=== PATIENT | male | born 1955 | race African-American/Black ===

== ENCOUNTER → 2018-03-05 | Outpatient (CLI) | payer OTHER ==
[2018-03-05 14:52] LABS: ABSOLUTE BASOPHILS # (AUTO) 0.1 10^3/uL (0.0-0.2); ABSOLUTE EOSINOPHILS # (AUTO) 0.1 10^3/uL (0.0-0.6); HEMOGLOBIN 13.3 g/dL (13.5-17.0); MEAN CORPUSCULAR VOLUME 96 fl (80-97)
[2018-03-05 14:58] LABS: APPEARANCE,URINE CLEAR; BILIRUBIN,URINE NEGATIVE (NEGATIVE); COLOR,URINE YELLOW; GLUCOSE, URINE NEGATIVE (NEGATIVE); KETONES,URINE NEGATIVE (NEGATIVE); LEUKOCYTE ESTERASE,URINE NEGATIVE (NEGATIVE); NITRITE,URINE NEGATIVE (NEGATIVE); PROTEIN,URINE NEGATIVE (NEGATIVE); URINE SPECIFIC GRAVITY 1.017; UROBILINOGEN,URINE NEGATIVE mg/dL (<2.0)
[2018-03-05 15:00] LABS: ABSOLUTE LYMPHOCYTES (AUTO) 2.3 10^3/uL (0.5-4.7); ABSOLUTE MONOCYTES (AUTO) 0.7 10^3/uL (0.1-1.4); ABSOLUTE NEUT (AUTO) 4.3 10^3/uL (1.7-8.2); BASOPHILS % (AUTO) 1.3 % (0-2); EOSINOPHILS % (AUTO) 1.4 % (0-6); HEMATOCRIT 39.9 % (37.9-51.0); LYMPHOCYTES % (AUTO) 30.8 % (13-45); MEAN CORPUSCULAR HGB CONC 33.3 g/dL (32.0-36.0); PLATELET COUNT 283 10^3/uL (150-450); RED BLOOD COUNT 4.15 10^6/uL (4.35-5.55); RED CELL DISTRIBUTION WIDTH 13.9 % (11.5-14.0); SEGMENTED NEUTROPHILS % (AUTO) 57.5 % (42-78); TOTAL CELLS COUNTED % (AUTO) 100 %; WHITE BLOOD COUNT 7.6 10^3/uL (4.0-10.5)
[2018-03-05 15:18] LABS: ANION GAP 10 (5-19); BLOOD UREA NITROGEN 22 mg/dL (7-20); CALCIUM 9.6 mg/dL (8.4-10.2); CARBON DIOXIDE 29 mmol/L (22-30); CHLORIDE 105 mmol/L (98-107); GLUCOSE 100 mg/dL (75-110); POTASSIUM 4.9 mmol/L (3.6-5.0); SODIUM 144.4 mmol/L (137-145)
== END ==
LOC: OD 13:56
PROVIDERS: ATTEND Orthopaedic Surgery
DX: M17.11 Unilateral primary osteoarthritis, right knee (principal)
CPT/HCPCS: 36415; 80048; 81001; 85025

== ENCOUNTER 2018-03-22 07:57 | Inpatient (IN) | payer OTHER ==
--- NOTE | 2018-03-19 10:24 | RADIOLOGY REPORT (SQ) ---
EXAM DESCRIPTION: CHEST PA/LATERAL COMPLETED DATE/TIME: 03/19/2018 10:10 am REASON FOR STUDY: PRE-OP COMPARISON: None. EXAM PARAMETERS: NUMBER OF VIEWS: two views TECHNIQUE: Digital Frontal and Lateral radiographic views of the chest acquired. RADIATION DOSE: NA LIMITATIONS: none FINDINGS: LUNGS AND PLEURA: No opacities, masses or pneumothorax. No pleural effusion. MEDIASTINUM AND HILAR STRUCTURES: No masses or contour abnormalities. HEART AND VASCULAR STRUCTURES: Heart normal size. No evidence for failure. BONES: No acute findings. HARDWARE:Hardware anterior fusion lower cervical spine and posterior fusion at the thoracolumbar junc tion. OTHER: No other significant finding. IMPRESSION: NO SIGNIFICANT RADIOGRAPHIC FINDING IN THE CHEST. TECHNICAL DOCUMENTATION: JOB ID: [id number] [employer]- All Rights Reserved Reading location - IP/workstation name: [email or web address]
--- NOTE | 2018-03-19 20:20 | EKG REPORT ---
SEVERITY:- NORMAL ECG - SINUS RHYTHM : Confirmed by: Ambreen Leigh MD 19-Mar-2018 20:19:51
[~2018-03-22 07:57] MED LIST: BUPIVACAINE INJ/PF LIPOSOME/PF 266 MG/20 ML SDV IJ PRN; CEFAZOLIN INJ 1 GM VIAL IV PRN; IBUPROFEN 800 MG/NS 250 ML IV PRN; LACTATED RINGERS 1000 ML IV PRN; LANSOPRAZOLE 15 MG TAB.RAP.DR PO PRN; LIDOCAINE 0.5% INJ-PF (5 MG/ML) 50 ML SDV SUBCUT PRN; OXYCODONE HCL SR 10 MG TABLET PO PRN; VANCOMYCIN HCL 1,000 MG in DEXTROSE 5%-WATER 250 ML IV PRN
[2018-03-22] MEDS ORDERED: ONDANSETRON 4 MG TAB.RAPDIS ONE (09:43)
[2018-03-22] MEDS ORDERED: MIDAZOLAM 2 MG/2 ML INJ ONE (10:18)
[2018-03-22] MEDS ORDERED: FENTANYL CITRATE INJ/PF 100 MCG/2 ML AMPUL ONE ×2 (10:18→10:43)
[2018-03-22] MEDS ORDERED: TRANEXAMIC ACID INJ/PF 1,000 MG/10 ML SDV IV ONE (10:19)
[2018-03-22] MEDS ORDERED: ACETAMINOPHEN 1,000 MG/100 ML RTUPB IV ONE (10:19)
[2018-03-22] MEDS ORDERED: PROPOFOL INJ 200 MG/20 ML VIAL IV ONE (10:19)
[2018-03-22] MEDS ORDERED: DEXMEDETOMIDINE INJ 80 MCG/20 ML VIAL IV ONE (10:19)
[2018-03-22] MEDS ORDERED: THROMBIN (BOVINE) TOPICAL 20000 UNIT VIAL ONE (10:22)
[2018-03-22] MEDS ORDERED: BUPIVACAINE INJ/PF LIPOSOME/PF 266 MG/20 ML SDV ONE (10:22)
[2018-03-22] MEDS ORDERED: THROMBIN (BOVINE) 5000 UNIT EPITAXIS KIT ONE (10:22)
[2018-03-22] MEDS ORDERED: BUPIVACAINE HCL/DEX-WATER/PF 15 MG/2 ML AMPULE ONE (10:33)
[2018-03-22] MEDS ORDERED: FENTANYL CITRATE INJ/PF 250 MCG/5 ML AMPULE ONE (10:43)
[2018-03-22] MEDS ORDERED: MEPERIDINE HCL/PF INJ 25 MG/1 ML DISP.SYRIN IV PRN (11:07)
[2018-03-22] MEDS ORDERED: FENTANYL CITRATE INJ/PF 100 MCG/2 ML AMPUL IV PRN ×3 (11:07)
[2018-03-22] MEDS ORDERED: DIPHENHYDRAMINE HCL 50 MG/ML VIAL IV PRN (11:07)
[2018-03-22] MEDS ORDERED: PROMETHAZINE HCL INJ 25 MG/1 ML VIAL IV PRN ×2 (11:07)
[2018-03-22] MEDS ORDERED: ONDANSETRON HCL INJ/PF 4 MG/2 ML SDV IV PRN (13:50)
[2018-03-22] MEDS ORDERED: MAG HYDROX/AL HYDROX/SIMETH SUSP 30 ML UDCUP PO PRN (13:50)
[2018-03-22] MEDS ORDERED: ACETAMINOPHEN 325 MG TABLET PO PRN (13:50)
--- NOTE | 2018-03-22 13:50 | Operative Report ---
Operative Report DATE OF SURGERY: 03/22/18 PREOPERATIVE DIAGNOSIS: Right knee osteoarthritis POSTOPERATIVE DIAGNOSIS: Same OPERATION: Right total knee arthroplasty SURGEON: GEMA LOVE ANESTHESIA: GA TISSUE REMOVED OR ALTERED: Bone cuts COMPLICATIONS: None ESTIMATED BLOOD LOSS: 50 mL INTRAOPERATIVE FINDINGS: As above PROCEDURE: Patient received preoperative antibiotics and was taken to the operating room where she received general anesthetic. Patient was placed supine position and a thigh tourniquet was applied to right lower extremity. A bump was applied under buttocks and then the right lower extremity was prepped and draped in a normal sterile surgical fashion. Timeout was done identifying the right knee as the correct site. Esmarch was used to exsanguinate the extremity and the tourniquet was inflated at 300 mmHg. Of note we deflated tourniquet at the end of the procedure at 124 minutes. Midline incision was done over the knee and dissection was taken down to the retinaculum and extensor mechanism and a paramedial arthrotomy was done exposing the knee. Patient had [id number] osteoarthritis as confirmed by x-ray with mild joint effusion. We then proceeded to do a medial release and excision of the medial meniscus and lateral meniscus. We moved remove the fat pad and then we flexed the knee at 90 and then remove the ACL and PCL as well. We subluxed the tibia anteriorly and placed the retractors and proceeded to do our tibial cut first. We drilled intramedullary and placed our intramedullary guide and pin the guide by measuring off the medial side which was the low side. We proceeded to do our tibial cut successfully. I was satisfied with the cut so I then proceeded to turn my attention to the femoral side and drilled intramedullary and then placed my intramedullary guide to do my distal femoral cut. We proceeded to us to pin it in place and then do our use a saw to do my distal femoral cut. Once I was satisfied with my distal femoral cut I removed the guide and then use a spacer to confirm proper balance. Initially I felt that my extension gap was balanced with 9 mm spacer. This was removed and I did proceed to size and do my 4-in-1 cutting block of the femur. I measured and used a size 6 and proceeded to do my 4 and 1 cuts. I then placed the box car washer and then do the resected my box portion with a receptive saw and osteotome. I trialed he 6 femur l with a size 6 tibia and 9 mm spacer. I was satisfied with the flexion extension side proceeded to do my patellar cut using the guide. The patella measured 24 mm and we proceeded to resect 12 mm and left 12 mm behind after my cut was completed. I drilled the holes and placed the trial component patella and placed in range of motion. I was satisfied with her range of motion and stability so I proceeded to remove all the implants and opened final components of the tibial tray, femur and patella button. I still use the trialed spacers at the end for repeat examination. Once I used copious irrigation and pulse lavage to clean out the bone I then proceeded to mix cement and appropriately cement the tibial component first and remove the excess cement. I then cemented the femoral component and remove the excess cement. I placed a trial spacer and cemented my patellar button. We waited until the cement had hardened and then needed to inject Exparel in the posterior capsule and periosteum. I then proceeded to put the final polyethylene spacer that measured 9 mm at this point I proceeded to do my closure where I used #1 Vicryl for the arthrotomy and quadriceps tendon. I used thrombin for the knee and then I proceeded to close my subcutaneous tissue with 0 Vicryl and 2-0 Vicryl for dermis and taylor for skin. 4 x 4 dressing and OpSite dressing was applied the extremity was wrapped with soft roll and Mgadaleno bandage. Tourniquet was let down and drapes were removed. Patient was then transferred to PACU in stable condition.
[2018-03-22] MEDS ORDERED: METHOCARBAMOL 500 MG TABLET PO PRN (13:52)
[2018-03-22] MEDS ORDERED: OXYCODONE HCL IR 5 MG TABLET PO PRN ×2 (13:54→14:20)
[2018-03-22] MEDS ORDERED: MORPHINE SULFATE 10 MG/ML INJ IV PRN (13:55)
[2018-03-22] MEDS ORDERED: (PENDING PHARMACY ID) (Gabapentin [Gabapentin] 800 MG) PO SCH (14:00)
--- NOTE | 2018-03-22 14:42 | RADIOLOGY REPORT (SQ) ---
EXAM DESCRIPTION: KNEE RIGHT 2 VIEWS COMPLETED DATE/TIME: 03/22/2018 2:14 pm REASON FOR STUDY: Post OP -Long Cassette in PACU M17.0 BILATERAL PRIMARY OSTEOARTHRITIS OF KNEE COMPARISON: None. NUMBER OF VIEWS: Two views TECHNIQUE: Digital radiographic images of the right knee post-procedure. LIMITATIONS: None. FINDINGS: BONES: No worrisome or unexpected findings post-procedure. DEVICE: Right total knee replacement with patellar resurfacing SOFT TISSUES: No worrisome findings. Expected postoperative soft tissue changes. IMPRESSION: SATISFACTORY POSTOPERATIVE RIGHT KNEE. TECHNICAL DOCUMENTATION: JOB ID: [id number] [employer]- All Rights Reserved Reading location - IP/workstation name: [email or web address]
[2018-03-22] MEDS ORDERED: DEXAMETHASONE SOD PHOSPHATE INJ 4 MG/1 ML VIAL ONE (14:43)
[2018-03-22] MEDS ORDERED: SUCCINYLCHOLINE CHLORIDE INJ 200 MG/10 ML VIAL ONE (14:43)
[2018-03-22] MEDS ORDERED: ROCURONIUM BROMIDE INJ 50 MG/5 ML VIAL IV ONE (14:43)
[2018-03-22] MEDS: SENNOSIDES/DOCUSATE 8.6-50 MG 1 EACH TABLET PO SCH (17:31)
[2018-03-22] MEDS: CARBOXYMETHYLCELLULOSE SOD 0.5% 0.4 ML DROPERETTE OU SCH (17:32)
[2018-03-22] MEDS ORDERED: (PENDING PHARMACY ID) (Carvedilol [Carvedilol] 12.5 MG) PO SCH (18:00)
[2018-03-22] MEDS ORDERED: SILDENAFIL CITRATE 50 MG PO PRN (20:02)
[2018-03-22] MEDS ORDERED: (PENDING PHARMACY ID) (Naproxen [Naproxen] 500 MG) PO PRN (20:02)
[2018-03-22] MEDS ORDERED: NAPROXEN 250 MG TABLET PO PRN (20:17)
[2018-03-22] MEDS: CARVEDILOL 12.5 MG TABLET PO SCH (21:42)
[2018-03-22] MEDS: GABAPENTIN 400 MG CAPSULE PO SCH (21:43)
[2018-03-22] MEDS: OMEGA-3 ACID ETHYL ESTERS 1 GM CAPSULE PO SCH (21:43)
[2018-03-22] MEDS: OXYCODONE HCL SR 10 MG TABLET PO SCH (21:43)
[2018-03-22] MEDS: DOXAZOSIN MESYLATE 1 MG TABLET PO SCH (21:45)
[2018-03-22] MEDS ORDERED: (PENDING PHARMACY ID) (Prazosin Hcl [Prazosin Hcl] 1 MG) PO SCH (22:00)
[2018-03-23] MEDS ORDERED: VANCOMYCIN HCL 1,000 MG in DEXTROSE 5%-WATER 250 ML IV ONE (01:50)
[2018-03-23 04:50] LABS: HEMATOCRIT 32.7 % (37.9-51.0); HEMOGLOBIN 11.1 g/dL (13.5-17.0); MEAN CORPUSCULAR HEMOGLOBIN 32.6 pg (27.0-33.4); MEAN CORPUSCULAR VOLUME 96 fl (80-97); PLATELET COUNT 247 10^3/uL (150-450); RED BLOOD COUNT 3.41 10^6/uL (4.35-5.55); RED CELL DISTRIBUTION WIDTH 13.7 % (11.5-14.0); WHITE BLOOD COUNT 15.1 10^3/uL (4.0-10.5)
[2018-03-23 05:09] LABS: ANION GAP 14 (5-19); BLOOD UREA NITROGEN 21 mg/dL (7-20); CALCIUM 8.8 mg/dL (8.4-10.2); CARBON DIOXIDE 28 mmol/L (22-30); CHLORIDE 99 mmol/L (98-107); GLUCOSE 142 mg/dL (75-110); POTASSIUM 5.1 mmol/L (3.6-5.0); SODIUM 140.5 mmol/L (137-145)
[2018-03-23] MEDS: GABAPENTIN 400 MG CAPSULE PO SCH ×3 (05:49→22:24)
[2018-03-23] MEDS ORDERED: (PENDING PHARMACY ID) (Lisinopril [Lisinopril] 40 MG) PO SCH (10:00)
[2018-03-23] MEDS ORDERED: (PENDING PHARMACY ID) (Diltiazem Hcl [Diltiazem 24hr Cd] 240 MG) PO SCH (10:00)
[2018-03-23] MEDS ORDERED: (PENDING PHARMACY ID) (Omega-3 Fatty Acids/Fish Oil [Fish Oil 1,000 Mg Capsule] 1 CAP) PO SCH (10:00)
[2018-03-23] MEDS: LISINOPRIL 10 MG TABLET PO SCH (10:47)
[2018-03-23] MEDS: OXYCODONE HCL SR 10 MG TABLET PO SCH ×2 (10:48→22:24)
[2018-03-23] MEDS: OMEGA-3 ACID ETHYL ESTERS 1 GM CAPSULE PO SCH ×2 (10:49→22:31)
[2018-03-23] MEDS: CARVEDILOL 12.5 MG TABLET PO SCH ×2 (10:49→22:24)
[2018-03-23] MEDS: SENNOSIDES/DOCUSATE 8.6-50 MG 1 EACH TABLET PO SCH ×2 (10:49→17:49)
[2018-03-23] MEDS: DILTIAZEM HCL 240 MG CAPSULE.CR PO SCH (10:49)
[2018-03-23] MEDS: PRENATAL VITAMIN W DHA CAPSULE PO SCH (10:49)
[2018-03-23] MEDS: CARBOXYMETHYLCELLULOSE SOD 0.5% 0.4 ML DROPERETTE OU SCH ×2 (10:50→17:49)
--- NOTE | 2018-03-23 12:24 | PDOC PROGRESS REPORT ---
Subjective Progress Note for:: 03/23/18 Subjective:: Patient states pain is adequately controlled. Participate with therapy very well. Is okay being discharged tomorrow. Reason For Visit: RIGHT TOTAL KNEE ARTHROPLASTY Physical Exam Vital Signs: Temp Pulse Resp BP Pulse Ox 36.9 C 72 18 131/73 H 97 03/23/18 07:10 03/23/18 07:10 03/23/18 07:10 03/23/18 07:10 03/23/18 07:10 Intake & Output 03/22/18 03/23/18 03/24/18 06:59 06:59 06:59 Intake Total 1700 Output Total 550 Balance 1150 Weight 137.7 kg General appearance: PRESENT: no acute distress Adult Front & Back Image: 1 - Dressing is dry clean and intact. Passively I can extend into the -10 degrees and flexion to about 90 degrees. Actively he cannot straight leg raise yet. He can flex it to about 60 degrees actively. He has soft calves and is neurovascular intact distally. Results Laboratory Results: 03/23/18 04:28 03/23/18 04:28 03/23/18 03/23/18 04:28 04:28 WBC 15.1 H RBC 3.41 L Hgb 11.1 L Hct 32.7 L MCV 96 MCH 32.6 MCHC 34.0 RDW 13.7 Plt Count 247 Sodium 140.5 Potassium 5.1 H Chloride 99 Carbon Dioxide 28 Anion Gap 14 BUN 21 H Creatinine 1.14 Est GFR ( Amer) > 60 Est GFR (Non-Af Amer) > 60 Glucose 142 H Calcium 8.8 Impressions: Chest X-Ray 03/19/18 09:35 IMPRESSION: NO SIGNIFICANT RADIOGRAPHIC FINDING IN THE CHEST. Knee X-Ray 03/22/18 13:51 IMPRESSION: SATISFACTORY POSTOPERATIVE RIGHT KNEE. Status: Image reviewed by me Assessment & Plan - Diagnosis (1) S/P total knee replacement Qualifiers: Laterality: right Qualified Code(s): Z96.651 - Presence of right artificial knee joint Is this a current diagnosis for this admission?: Yes Plan: Patient is postop day 1 from right total knee arthroplasty. Participate with physical therapy very well. He already has a walker and a commode at home. Plan for discharge tomorrow. Dressing change prior to discharge. Continue pain control. Prescriptions are in the chart for discharge tomorrow.
[2018-03-23] MEDS ORDERED: ONDANSETRON 4 MG TAB.RAPDIS PO PRN (19:59)
[2018-03-23] MEDS: DOXAZOSIN MESYLATE 1 MG TABLET PO SCH (22:24)
[2018-03-24 05:14] LABS: HEMATOCRIT 30.8 % (37.9-51.0); HEMOGLOBIN 10.2 g/dL (13.5-17.0); MEAN CORPUSCULAR HEMOGLOBIN 32.5 pg (27.0-33.4); MEAN CORPUSCULAR HGB CONC 33.2 g/dL (32.0-36.0); MEAN CORPUSCULAR VOLUME 98 fl (80-97); PLATELET COUNT 234 10^3/uL (150-450); RED BLOOD COUNT 3.15 10^6/uL (4.35-5.55); RED CELL DISTRIBUTION WIDTH 13.5 % (11.5-14.0); WHITE BLOOD COUNT 18.4 10^3/uL (4.0-10.5)
[2018-03-24] MEDS: GABAPENTIN 400 MG CAPSULE PO SCH (05:56)
[2018-03-24] MEDS ORDERED: NALOXONE HCL INJ/PF 0.4 MG/1 ML SDV ONE ×3 (10:14→17:51)
--- NOTE | 2018-03-24 10:56 | PDOC PROGRESS REPORT ---
Subjective Progress Note for:: 03/24/18 Subjective:: Patient somnolent on examination today according to nursing staff. Patient was arousable and complained of no pain. Denied chest pain or shortness of breath. Reason For Visit: RIGHT TOTAL KNEE ARTHROPLASTY Physical Exam Vital Signs: Temp Pulse Resp BP Pulse Ox 98.5 F 69 19 113/52 L 92 03/24/18 07:55 03/24/18 07:55 03/24/18 07:55 03/24/18 07:55 03/24/18 07:55 Intake & Output 03/23/18 03/24/18 03/25/18 06:59 06:59 06:59 Intake Total 1700 600 Output Total 550 690 Balance 1150 -90 Weight 137.7 kg 137.9 kg Musculoskeletal exam: PRESENT: other - Right knee: Dressing clean/dry/intact no erythema or drainage. Intact plantar flexion/dorsiflexion. No calf tenderness. Negative Homans. No sensory deficits. Results Laboratory Results: 03/24/18 04:16 03/23/18 04:28 03/24/18 04:16 WBC 18.4 H RBC 3.15 L Hgb 10.2 L Hct 30.8 L MCV 98 H MCH 32.5 MCHC 33.2 RDW 13.5 Plt Count 234 Impressions: Chest X-Ray 03/19/18 09:35 IMPRESSION: NO SIGNIFICANT RADIOGRAPHIC FINDING IN THE CHEST. Knee X-Ray 03/22/18 13:51 IMPRESSION: SATISFACTORY POSTOPERATIVE RIGHT KNEE. Assessment & Plan - Diagnosis (1) S/P total knee replacement Qualifiers: Laterality: right Qualified Code(s): Z96.651 - Presence of right artificial knee joint Is this a current diagnosis for this admission?: Yes Plan: Postop day #2 status post right total knee arthroplasty 1. Pain control 2. Xarelto for DVT prophylaxis 3. Patient was given Narcan at bedside today given his somnolence and continuous need for oxygen. The patient continues to require nasal cannula will consider possible consultation to the hospitalist. Anticipate discharge
[2018-03-24] MEDS: CARVEDILOL 12.5 MG TABLET PO SCH ×2 (12:47→23:43)
[2018-03-24] MEDS: DILTIAZEM HCL 240 MG CAPSULE.CR PO SCH (12:47)
[2018-03-24] MEDS: LISINOPRIL 10 MG TABLET PO SCH (12:47)
[2018-03-24 13:44] LABS: ARTERIAL BLOOD BASE EXCESS 0.4 mmol/L; ARTERIAL BLOOD H2CO3 2.48 mmol/L (1.05-1.35); ARTERIAL BLOOD HCO3 30.2 mmol/L (20-26); ARTERIAL BLOOD O2 SATURATION 91.2 % (94-98); ARTERIAL BLOOD TOTAL CO2 32.8 mmol/L (23-27)
[2018-03-24 13:48] LABS: ARTERIAL BLOOD FIO2 24M NC
[2018-03-24 13:50] LABS: ARTERIAL BLOOD PCO2 82.5 mmHg (35-45); ARTERIAL BLOOD PH 7.18 (7.35-7.45)
--- NOTE | 2018-03-24 13:56 | PDOC CONSULTATION ---
Consultation Consult Date: 03/24/18 Attending physician:: HONORIO LAWSON Consult reason:: Sedation History of Present Illness Admission Date/PCP: 03/22/18 07:57 MELANIE FAYE PA-C Patient complains of: Sedation, AMS History of Present Illness: JAMEEL PICKENS is a 62 year old male Past Medical History Cardiac Medical History: Reports: Hypertension Denies: Atrial Fibrillation, Congestive Heart Failure, Coronary Artery Disease, Myocardial Infarction, Hyperlipidema, Peripheral Vascular Disease, Pulmonary Embolism, Heart Murmur Pulmonary Medical History: Reports: Sleep Apnea - uses CPAP Denies: Asthma, Bronchitis, Chronic Obstructive Pulmonary Disease (COPD), Pneumonia, Respiratory Failure, Tuberculosis Neurological Medical History: Denies: Seizures Endocrine Medical History: Denies: Hyperthyroidism, Hypothyroidism Renal/ Medical History: Denies: End Stage Renal Disease Malignancy Medical History: Denies: Lung Cancer Musculoskeltal Medical History: Reports: Arthritis - knees Denies: Fibromyalgia Psychiatric Medical History: Reports: Post Traumatic Stress Disorder - under treatment Denies: Bipolar Disorder, Depression Hematology: Denies: Anemia, Sickle Cell Disease Past Surgical History Past Surgical History: Denies: Appendectomy, Cholecystectomy, Coronary Artery Bypass Graft, Gastric Bypass Surgery, Herniorrhaphy, Pacemaker, Tonsillectomy Social History Information Source: Patient Smoking Status: Never Smoker Hx Recreational Drug Use: No Hx Prescription Drug Abuse: No - Advance Directive Resuscitation Status: Full Code Family History Parental Family History Reviewed: No Children Family History Reviewed: NA Sibling(s) Family History Reviewed.: NA Medication/Allergy Home Medications: Carboxymethylcellulose Sodium [Lubricant Eye Drops] 1 each OD BID 03/19/18 Carvedilol 12.5 mg PO BID 03/19/18 Diltiazem HCl [Diltiazem 24Hr Cd] 240 mg PO DAILY 03/19/18 Gabapentin 800 mg PO TID 03/19/18 Lisinopril 40 mg PO DAILY 03/19/18 Methocarbamol 500 mg PO TID PRN 03/19/18 Naproxen 500 mg PO BID PRN 03/19/18 [place]-3 Fatty Acids/Fish Oil [Fish Oil 1,000 mg Capsule] 1 cap PO BID 03/19/18 Prazosin HCl 1 mg PO HSP PRN 03/19/18 Sildenafil Citrate 50 mg PO ASDIR PRN MDD 1 TAB IN 24 HOURS 07/09/18 Multivit-Min/Folic/Vit K/Lycop [One-A-Day Men's 50 Plus Tablet] 1 each PO DAILY 03/22/18 Allergies/Adverse Reactions: No Known Allergies Allergy (Verified 03/22/18 20:25) Review of Systems ROS unobtainable: Due to mental status Physical Exam Vital Signs: Temp Pulse Resp BP Pulse Ox 98.5 F 69 19 113/52 L 92 03/24/18 07:55 03/24/18 07:55 03/24/18 07:55 03/24/18 07:55 03/24/18 07:55 Intake & Output 03/23/18 03/24/18 03/25/18 06:59 06:59 06:59 Intake Total 1700 600 Output Total 550 690 Balance 1150 -90 Weight 137.7 kg 137.9 kg General appearance: PRESENT: no acute distress, morbidly obese, other - Sleepy, intermittantly arousable After receiving Narcan, wake. Conversant. Head exam: PRESENT: atraumatic, normocephalic Mouth exam: PRESENT: dry mucosa Respiratory exam: PRESENT: decreased breath sounds, symmetrical, unlabored, other - Deep breathing Cardiovascular exam: PRESENT: RRR. ABSENT: tachycardia GI/Abdominal exam: PRESENT: soft. ABSENT: tenderness Neurological exam: PRESENT: alert, awake - after receiving narcan, CN II-XII grossly intact. ABSENT: aphasic Psychiatric exam: PRESENT: appropriate affect Skin exam: PRESENT: dry, intact Results Laboratory Results: 03/24/18 04:16 03/23/18 04:28 03/24/18 04:16 WBC 18.4 H RBC 3.15 L Hgb 10.2 L Hct 30.8 L MCV 98 H MCH 32.5 MCHC 33.2 RDW 13.5 Plt Count 234 Impressions: Chest X-Ray 03/19/18 09:35 IMPRESSION: NO SIGNIFICANT RADIOGRAPHIC FINDING IN THE CHEST. Knee X-Ray 03/22/18 13:51 IMPRESSION: SATISFACTORY POSTOPERATIVE RIGHT KNEE. Assessment & Plan - Diagnosis (1) Altered mental state Qualifiers: Altered mental status type: somnolence Qualified Code(s): R40.0 - Somnolence Is this a current diagnosis for this admission?: Yes Plan: Most likely secondary to opioid use. Last received Oxycodone 20mg around 11pm on 03/23. Also on Robaxin. Would not expect this degree of sedation however unclear if pt is opioid naive. - Received Narcan 0.4mg * 2 doses. Responses after each dose. More responsive after 2nd dose. This points towards AMS being due to over-medication - Continue to monitor, can given up 10mg Narcan total dose - Neuro exam non-focal, CTM - ABG obtained and results pending - Holding Robaxin and Gapabentin, decreased Oxycodone 10mg - Scheduling Tylenol 650mg q4 hours to achieve better pain contorl (2) Hypotension Qualifiers: Hypotension type: other hypotension type Qualified Code(s): I95.89 - Other hypotension Is this a current diagnosis for this admission?: Yes Plan: On home medications; BP's noted to be soft this AM with SBP in 90s -Will give 1L NS bolus - Monitor BPs, continue home meds for now (3) Leukocytosis Qualifiers: Leukocytosis type: bandemia Qualified Code(s): D72.825 - Bandemia Is this a current diagnosis for this admission?: Yes Plan: Unclear etiology. No reported fevers. No localizing symptoms. CTM. Repeat CBC in AM (4) S/P total knee replacement Qualifiers: Laterality: right Qualified Code(s): Z96.651 - Presence of right artificial knee joint Is this a current diagnosis for this admission?: Yes Plan: POD #2 - Continue Rivaroxaban for DVT ppx - Ortho following - Time Time Spent: 30 to 50 Minutes Anticipated discharge: Home, Home with Homehealth
[2018-03-24] MEDS ORDERED: ACETAMINOPHEN 325 MG TABLET PO SCH (14:00)
[2018-03-24] MEDS: CARBOXYMETHYLCELLULOSE SOD 0.5% 0.4 ML DROPERETTE OU SCH ×2 (14:24→19:40)
[2018-03-24] MEDS: SENNOSIDES/DOCUSATE 8.6-50 MG 1 EACH TABLET PO SCH ×2 (14:24→19:40)
[2018-03-24] MEDS: OMEGA-3 ACID ETHYL ESTERS 1 GM CAPSULE PO SCH ×2 (14:24→23:43)
[2018-03-24] MEDS: PRENATAL VITAMIN W DHA CAPSULE PO SCH (14:24)
[2018-03-24] MEDS ORDERED: SUCCINYLCHOLINE CHLORIDE INJ 200 MG/10 ML VIAL ONE (16:48)
[2018-03-24] MEDS ORDERED: RIVAROXABAN 10 MG TABLET PO SCH (17:00)
[2018-03-24] MEDS ORDERED: NALOXONE HCL INJ/PF 0.4 MG/1 ML SDV IV ONE (18:15)
[2018-03-24 18:54] LABS: ARTERIAL BLOOD BASE EXCESS -0.5 mmol/L; ARTERIAL BLOOD H2CO3 1.95 mmol/L (1.05-1.35); ARTERIAL BLOOD HCO3 27.7 mmol/L (20-26); ARTERIAL BLOOD O2 SATURATION 91.4 % (94-98); ARTERIAL BLOOD PCO2 64.8 mmHg (35-45); ARTERIAL BLOOD PH 7.25 (7.35-7.45); ARTERIAL BLOOD PO2 71.8 mmHg (80-100); ARTERIAL BLOOD TOTAL CO2 29.6 mmol/L (23-27)
[2018-03-24 18:55] LABS: ARTERIAL BLOOD FIO2 30%
[2018-03-24] MEDS: ACETAMINOPHEN 325 MG TABLET PO SCH ×2 (19:40→23:43)
[2018-03-24 21:26] LABS: ANION GAP 12 (5-19); BLOOD UREA NITROGEN 54 mg/dL (7-20); CALCIUM 7.9 mg/dL (8.4-10.2); CARBON DIOXIDE 29 mmol/L (22-30); CHLORIDE 94 mmol/L (98-107); GLUCOSE 121 mg/dL (75-110); POTASSIUM 5.6 mmol/L (3.6-5.0)
[2018-03-24] MEDS ORDERED: LACTULOSE SYRUP 20 GM/30 ML UDCUP PO ONE (21:36)
[2018-03-24 21:40] LABS: ARTERIAL BLOOD FIO2 35%; ARTERIAL BLOOD H2CO3 2.47 mmol/L (1.05-1.35); ARTERIAL BLOOD O2 SATURATION 93.2 % (94-98); ARTERIAL BLOOD PO2 85.8 mmHg (80-100); ARTERIAL BLOOD TOTAL CO2 31.5 mmol/L (23-27)
[2018-03-24 21:41] LABS: ARTERIAL BLOOD PCO2 82.2 mmHg (35-45); ARTERIAL BLOOD PH 7.17 (7.35-7.45)
[2018-03-24] MEDS ORDERED: NALOXONE HCL INJ 2 MG/2 ML DISP.SYRIN IV ONE (21:47)
[2018-03-24 22:23] LABS: TROPONIN I < 0.012 ng/mL
[2018-03-24] MEDS ORDERED: IPRATROPIUM/ALBUTEROL 0.5-2.5 MG/3 ML AMPUL NEB ONE (22:30)
[2018-03-24] MEDS ORDERED: CALCIUM GLUCONATE 1000 MG/10 ML INJ IV ONE (22:30)
[2018-03-24 22:35] LABS: APPEARANCE,URINE CLOUDY; BILIRUBIN,URINE NEGATIVE (NEGATIVE); COLOR,URINE YELLOW; GLUCOSE, URINE NEGATIVE (NEGATIVE); KETONES,URINE NEGATIVE (NEGATIVE); LEUKOCYTE ESTERASE,URINE NEGATIVE (NEGATIVE); NITRITE,URINE NEGATIVE (NEGATIVE); PROTEIN,URINE 100 mg/dL (NEGATIVE); URINE SPECIFIC GRAVITY 1.014; UROBILINOGEN,URINE NEGATIVE mg/dL (<2.0)
[2018-03-24 22:42] LABS: HEMATOCRIT 27.9 % (37.9-51.0); HEMOGLOBIN 9.3 g/dL (13.5-17.0); MEAN CORPUSCULAR HEMOGLOBIN 32.5 pg (27.0-33.4); MEAN CORPUSCULAR HGB CONC 33.3 g/dL (32.0-36.0); MEAN CORPUSCULAR VOLUME 98 fl (80-97); PLATELET COUNT 201 10^3/uL (150-450); RED BLOOD COUNT 2.86 10^6/uL (4.35-5.55); RED CELL DISTRIBUTION WIDTH 13.3 % (11.5-14.0); WHITE BLOOD COUNT 14.9 10^3/uL (4.0-10.5)
[2018-03-24] MEDS ORDERED: PROPOFOL 1,000 MG/100 ML INFUS..BTL IV ONE (23:05)
[2018-03-24] MEDS ORDERED: PROPOFOL INJ 200 MG/20 ML VIAL IV ONE (23:33)
[2018-03-24] MEDS ORDERED: SODIUM BICARBONATE 8.4% INJ 50 MEQ/50 ML DISP.SYRIN ONE (23:38)
[2018-03-24] MEDS ORDERED: DEXTROSE 5%-WATER 1000 ML 1,000 ML with SODIUM BICARBONATE 150 MEQ IV PRN ×2 (23:39)
[2018-03-24] MEDS: DOXAZOSIN MESYLATE 1 MG TABLET PO SCH (23:43)
[2018-03-24] MEDS: PROPOFOL 1,000 MG/100 ML INFUS..BTL IV PRN (23:54)
--- NOTE | 2018-03-25 00:28 | RADIOLOGY REPORT (SQ) ---
EXAM DESCRIPTION: Single view chest CLINICAL HISTORY: 62 years Male ETT placement COMPLETED DATE/TME: 03/24/2018 23:32 COMPARISON: 03/19/2018. FINDINGS: Poor depth of inspiration with atelectasis in the lung bases. ET tube is above the level of karen. Nasogastric tube passes below the level the hemidiaphragm. Postsurgical changes in the thoracolumbar spine in the cervical spine. The cardiomediastinal silhouette appears more prominent than on the previous examination which I suspect is due to poor depth of inspiration and AP projection. Prominence of the central pulmonary vasculature and patchy perihilar densities which may reflect central pulmonary vascular congestion and/or developing infiltrate or edema. Recommend PA and lateral views of the chest. IMPRESSION: Cardial mediastinal silhouette appears prominent which may be on the basis of patient positioning Patchy perihilar densities and prominence of the central pulmonary vasculature. Recommend PA and lateral views of the chest.
[2018-03-25 01:39] LABS: ARTERIAL BLOOD BASE EXCESS 0.4 mmol/L; ARTERIAL BLOOD H2CO3 1.66 mmol/L (1.05-1.35); ARTERIAL BLOOD HCO3 27.1 mmol/L (20-26); ARTERIAL BLOOD O2 SATURATION 96.4 % (94-98); ARTERIAL BLOOD PCO2 55.2 mmHg (35-45); ARTERIAL BLOOD PH 7.31 (7.35-7.45); ARTERIAL BLOOD TOTAL CO2 28.8 mmol/L (23-27)
[2018-03-25 01:40] LABS: ARTERIAL BLOOD FIO2 50%
[2018-03-25] MEDS ORDERED: ACETAMINOPHEN SOLN 325 MG/10.15 ML UDCUP ONE (02:35)
[2018-03-25] MEDS: ACETAMINOPHEN 325 MG TABLET PO SCH ×3 (02:36→08:10)
[2018-03-25] MEDS: PROPOFOL 1,000 MG/100 ML INFUS..BTL IV PRN ×2 (03:33→14:25)
[2018-03-25 04:21] LABS: HEMATOCRIT 27.9 % (37.9-51.0); HEMOGLOBIN 9.3 g/dL (13.5-17.0); MEAN CORPUSCULAR HGB CONC 33.3 g/dL (32.0-36.0); MEAN CORPUSCULAR VOLUME 96 fl (80-97); PLATELET COUNT 165 10^3/uL (150-450); RED CELL DISTRIBUTION WIDTH 13.4 % (11.5-14.0); WHITE BLOOD COUNT 13.7 10^3/uL (4.0-10.5)
[2018-03-25 04:43] LABS: ANION GAP 12 (5-19); BLOOD UREA NITROGEN 62 mg/dL (7-20); CALCIUM 7.8 mg/dL (8.4-10.2); CARBON DIOXIDE 28 mmol/L (22-30); CHLORIDE 95 mmol/L (98-107); GLUCOSE 142 mg/dL (75-110); POTASSIUM 5.2 mmol/L (3.6-5.0); SODIUM 134.9 mmol/L (137-145)
[2018-03-25 05:16] LABS: TROPONIN I < 0.012 ng/mL
[2018-03-25] MEDS: RINGERS SOLUTION,LACTATED 1,000 ML IV PRN ×2 (05:27→12:10)
[2018-03-25 05:37] LABS: ARTERIAL BLOOD BASE EXCESS 4.1 mmol/L; ARTERIAL BLOOD H2CO3 1.81 mmol/L (1.05-1.35); ARTERIAL BLOOD HCO3 31.1 mmol/L (20-26); ARTERIAL BLOOD O2 SATURATION 93.2 % (94-98); ARTERIAL BLOOD PCO2 60.1 mmHg (35-45); ARTERIAL BLOOD PH 7.33 (7.35-7.45); ARTERIAL BLOOD PO2 72.5 mmHg (80-100)
[2018-03-25 05:39] LABS: ARTERIAL BLOOD FIO2 50%
[2018-03-25] MEDS ORDERED: ACETAMINOPHEN 650 MG SUPP.RECT PR PRN (08:01)
[2018-03-25] MEDS: SENNOSIDES/DOCUSATE 8.6-50 MG 1 EACH TABLET PO SCH (08:11)
[2018-03-25] MEDS ORDERED: NAPROXEN 250 MG TABLET NG PRN (09:00)
[2018-03-25] MEDS ORDERED: MAG HYDROX/AL HYDROX/SIMETH SUSP 30 ML UDCUP NG PRN (09:00)
[2018-03-25] MEDS ORDERED: OXYCODONE HCL IR 5 MG TABLET NG PRN (09:00)
[2018-03-25] MEDS ORDERED: ONDANSETRON 4 MG TAB.RAPDIS NG PRN (09:00)
[2018-03-25] MEDS ORDERED: METHOCARBAMOL 500 MG TABLET NG PRN (09:00)
--- NOTE | 2018-03-25 09:30 | RADIOLOGY REPORT (SQ) ---
EXAM DESCRIPTION: U/S RETROPERITON LTD COMPLETED DATE/TIME: 03/25/2018 9:22 am REASON FOR STUDY: decreased urine output M17.0 BILATERAL PRIMARY OSTEOARTHRITIS OF KNEE COMPARISON: None. TECHNIQUE: Dynamic and static grayscale images acquired of the kidneys and bladder and recorded on P ACS. Additional selected color Doppler and spectral images recorded. LIMITATIONS: None. FINDINGS: RIGHT KIDNEY: Normal size. Normal echogenicity. No solid or suspicious masses. No h ydronephrosis. No calcifications. LEFT KIDNEY: Normal size. Normal echogenicity. No solid or suspicious masses. No hydronephrosi s. No calcifications. BLADDER: Decompressed. [place]. OTHER FINDINGS: No other significant finding. IMPRESSION: NORMAL RENAL AND BLADDER ULTRASOUND. TECHNICAL DOCUMENTATION: JOB ID: [id number] [employer]- All Rights Reserved Reading location - IP/workstation name: [email or web address]
[2018-03-25] MEDS ORDERED: HEPARIN SODIUM,PORCINE/D5W 25,000 UNIT/250 ML RTUINJ IV PRN (09:38)
[2018-03-25 09:46] LABS: CREATINE KINASE MB 77.4 ng/mL (<4.55); TROPONIN I 0.026 ng/mL
[2018-03-25] MEDS: ACETAMINOPHEN SOLN 325 MG/10.15 ML UDCUP NG SCH ×2 (09:52→13:24)
[2018-03-25] MEDS ORDERED: SENNOSIDES/DOCUSATE 8.6-50 MG 1 EACH TABLET NG SCH (10:00)
[2018-03-25] MEDS ORDERED: OMEGA-3 ACID ETHYL ESTERS 1 GM CAPSULE PO SCH (10:00)
[2018-03-25] MEDS ORDERED: NA PHOS,M-B/NA PHOS,DI-BA (ADULT) 133 ML ENEMA PR SCH (10:00)
[2018-03-25] MEDS ORDERED: CARVEDILOL 12.5 MG TABLET NG SCH (10:00)
[2018-03-25 10:02] LABS: ABSOLUTE MONOCYTES (AUTO) 1.4 10^3/uL (0.1-1.4); ABSOLUTE NEUT (AUTO) 11.8 10^3/uL (1.7-8.2); BASOPHILS % (AUTO) 0.1 % (0-2); EOSINOPHILS % (AUTO) 0.1 % (0-6); HEMATOCRIT 25.8 % (37.9-51.0); HEMOGLOBIN 8.7 g/dL (13.5-17.0); MEAN CORPUSCULAR HEMOGLOBIN 32.2 pg (27.0-33.4); MEAN CORPUSCULAR HGB CONC 33.6 g/dL (32.0-36.0); MEAN CORPUSCULAR VOLUME 96 fl (80-97); MONOCYTES % (AUTO) 9.8 % (3-13); PLATELET COUNT 167 10^3/uL (150-450); RED BLOOD COUNT 2.69 10^6/uL (4.35-5.55); RED CELL DISTRIBUTION WIDTH 13.4 % (11.5-14.0); TOTAL CELLS COUNTED % (AUTO) 100 %; VENOUS BLOOD BASE EXCESS 1.3 mmol/L; VENOUS BLOOD HCO3 28.7 mmol/L (20-32); VENOUS BLOOD PCO2 57.7 mmHg (35-63); VENOUS BLOOD PH 7.31 (7.30-7.42); WHITE BLOOD COUNT 14.2 10^3/uL (4.0-10.5)
[2018-03-25 10:11] LABS: INTERNATIONAL RATION (INR) 1.27; PROTHROMBIN TIME 16.5 SEC (11.4-15.4)
[2018-03-25 10:12] LABS: PARTIAL THROMBOPLASTIN TIME 37.1 SEC (23.5-35.8)
[2018-03-25] MEDS ORDERED: HEPARIN SOD (PORCINE) 1,000 UNIT/ML 10 ML VIAL IV ONE (10:15)
[2018-03-25] MEDS ORDERED: PHENYLEPHRINE HCL INJ/PF 10 MG/1 ML SDV ONE (10:58)
[2018-03-25] MEDS ORDERED: DEXTROSE 5%-WATER 250 ML with PHENYLEPHRINE HCL 40 MG IV PRN ×2 (11:15)
[2018-03-25] MEDS: CARBOXYMETHYLCELLULOSE SOD 0.5% 0.4 ML DROPERETTE OU SCH (11:17)
--- NOTE | 2018-03-25 11:25 | PDOC PROGRESS REPORT ---
Subjective Progress Note for:: 03/25/18 Subjective:: Patient is seen bedside in the ICU with family. According to family and nursing he is not complaining of pain. Unfortunately last evening his respiratory status did not improve and ultimately required transfer to the ICU and placed on a ventilator. Reason For Visit: RIGHT TOTAL KNEE ARTHROPLASTY Physical Exam Vital Signs: Temp Pulse Resp BP Pulse Ox 100.9 F H 91 16 117/58 L 98 03/25/18 10:00 03/25/18 10:00 03/25/18 10:00 03/25/18 10:00 03/25/18 10:00 Intake & Output 03/24/18 03/25/18 03/26/18 06:59 06:59 06:59 Intake Total 600 2334 Output Total 690 1145 55 Balance -90 1189 -55 Weight 137.9 kg 139.4 kg Musculoskeletal exam: PRESENT: other - Right knee: Small area of dried blood along the distal aspect of the incision appropriate amount of swelling. No evidence of erythema. Unable to assess neuro status or calf tenderness given patient's mental status Results Laboratory Results: 03/25/18 09:50 03/25/18 04:09 03/24/18 03/24/18 03/24/18 13:22 18:20 20:50 WBC RBC Hgb Hct MCV MCH MCHC RDW Plt Count Seg Neutrophils % Lymphocytes % Monocytes % Eosinophils % Basophils % Absolute Neutrophils Absolute Lymphocytes Absolute Monocytes Absolute Eosinophils Absolute Basophils Carbonic Acid 2.48 H 1.95 H HCO3/H2CO3 Ratio 12:1 14:1 ABG pH 7.18 L* 7.25 L ABG pCO2 82.5 H* 64.8 H ABG pO2 77.0 L 71.8 L ABG HCO3 30.2 H 27.7 H ABG O2 Saturation 91.2 L 91.4 L ABG Base Excess 0.4 -0.5 VBG pH VBG pCO2 VBG HCO3 VBG Base Excess FiO2 24M NC 30% Sodium 135.0 L Potassium 5.6 H Chloride 94 L Carbon Dioxide 29 Anion Gap 12 BUN 54 H Creatinine 3.98 H Est GFR ( Amer) 19 L Est GFR (Non-Af Amer) 15 L Glucose 121 H Lactic Acid Calcium 7.9 L Ammonia Albumin Urine Color Urine Appearance Urine pH Ur Specific [place] Urine Protein Urine Glucose (UA) Urine Ketones Urine Blood Urine Nitrite Ur Leukocyte Esterase Urine WBC (Auto) Urine RBC (Auto) 03/24/18 03/24/18 03/24/18 21:30 22:00 22:30 WBC 14.9 H RBC 2.86 L Hgb 9.3 L Hct 27.9 L MCV 98 H MCH 32.5 MCHC 33.3 RDW 13.3 Plt Count 201 Seg Neutrophils % Lymphocytes % Monocytes % Eosinophils % Basophils % Absolute Neutrophils Absolute Lymphocytes Absolute Monocytes Absolute Eosinophils Absolute Basophils Carbonic Acid 2.47 H HCO3/H2CO3 Ratio 11:1 ABG pH 7.17 L* ABG pCO2 82.2 H* ABG pO2 85.8 ABG HCO3 29.0 H ABG O2 Saturation 93.2 L ABG Base Excess -1.0 VBG pH VBG pCO2 VBG HCO3 VBG Base Excess FiO2 35% Sodium Potassium Chloride Carbon Dioxide Anion Gap BUN Creatinine Est GFR ( Amer) Est GFR (Non-Af Amer) Glucose Lactic Acid Calcium Ammonia Albumin Urine Color YELLOW Urine Appearance CLOUDY Urine pH 5.0 Ur Specific [place] 1.014 Urine Protein 100 H Urine Glucose (UA) NEGATIVE Urine Ketones NEGATIVE Urine Blood LARGE H Urine Nitrite NEGATIVE Ur Leukocyte Esterase NEGATIVE Urine WBC (Auto) 22 Urine RBC (Auto) 8 03/25/18 03/25/18 03/25/18 01:26 04:09 04:09 WBC 13.7 H RBC 2.90 L Hgb 9.3 L Hct 27.9 L MCV 96 MCH 32.0 MCHC 33.3 RDW 13.4 Plt Count 165 Seg Neutrophils % Lymphocytes % Monocytes % Eosinophils % Basophils % Absolute Neutrophils Absolute Lymphocytes Absolute Monocytes Absolute Eosinophils Absolute Basophils Carbonic Acid 1.66 H HCO3/H2CO3 Ratio 16:1 ABG pH 7.31 L ABG pCO2 55.2 H ABG pO2 94.0 ABG HCO3 27.1 H ABG O2 Saturation 96.4 ABG Base Excess 0.4 VBG pH VBG pCO2 VBG HCO3 VBG Base Excess FiO2 50% Sodium 134.9 L Potassium 5.2 H Chloride 95 L Carbon Dioxide 28 Anion Gap 12 BUN 62 H Creatinine 4.38 H Est GFR ( Amer) 17 L Est GFR (Non-Af Amer) 14 L Glucose 142 H Lactic Acid Calcium 7.8 L Ammonia Albumin Urine Color Urine Appearance Urine pH Ur Specific [place] Urine Protein Urine Glucose (UA) Urine Ketones Urine Blood Urine Nitrite Ur Leukocyte Esterase Urine WBC (Auto) Urine RBC (Auto) 03/25/18 03/25/18 03/25/18 04:09 05:10 09:50 WBC 14.2 H RBC 2.69 L Hgb 8.7 L Hct 25.8 L MCV 96 MCH 32.2 MCHC 33.6 RDW 13.4 Plt Count 167 Seg Neutrophils % 83.0 H Lymphocytes % 7.0 L Monocytes % 9.8 Eosinophils % 0.1 Basophils % 0.1 Absolute Neutrophils 11.8 H Absolute Lymphocytes 1.0 Absolute Monocytes 1.4 Absolute Eosinophils 0.0 Absolute Basophils 0.0 Carbonic Acid 1.81 H HCO3/H2CO3 Ratio 17:1 ABG pH 7.33 L ABG pCO2 60.1 H ABG pO2 72.5 L ABG HCO3 31.1 H ABG O2 Saturation 93.2 L ABG Base Excess 4.1 VBG pH VBG pCO2 VBG HCO3 VBG Base Excess FiO2 50% Sodium Potassium Chloride Carbon Dioxide Anion Gap BUN Creatinine Est GFR ( Amer) Est GFR (Non-Af Amer) Glucose Lactic Acid Calcium Ammonia Albumin 3.1 L Urine Color Urine Appearance Urine pH Ur Specific [place] Urine Protein Urine Glucose (UA) Urine Ketones Urine Blood Urine Nitrite Ur Leukocyte Esterase Urine WBC (Auto) Urine RBC (Auto) 03/25/18 03/25/18 03/25/18 09:50 09:50 09:50 WBC RBC Hgb Hct MCV MCH MCHC RDW Plt Count Seg Neutrophils % Lymphocytes % Monocytes % Eosinophils % Basophils % Absolute Neutrophils Absolute Lymphocytes Absolute Monocytes Absolute Eosinophils Absolute Basophils Carbonic Acid HCO3/H2CO3 Ratio ABG pH ABG pCO2 ABG pO2 ABG HCO3 ABG O2 Saturation ABG Base Excess VBG pH 7.31 VBG pCO2 57.7 VBG HCO3 28.7 VBG Base Excess 1.3 FiO2 Sodium Potassium Chloride Carbon Dioxide Anion Gap BUN Creatinine Est GFR ( Amer) Est GFR (Non-Af Amer) Glucose Lactic Acid 1.0 Calcium Ammonia 21.2 Albumin Urine Color Urine Appearance Urine pH Ur Specific [place] Urine Protein Urine Glucose (UA) Urine Ketones Urine Blood Urine Nitrite Ur Leukocyte Esterase Urine WBC (Auto) Urine RBC (Auto) 03/24/18 03/24/18 03/25/18 20:50 20:50 04:09 Creatine Kinase 84901 H 71593 H CK-MB (CK-2) 63.00 H Troponin I < 0.012 03/25/18 03/25/18 03/25/18 04:09 09:05 09:05 Creatine Kinase 00361 H CK-MB (CK-2) 87.30 H 77.40 H Troponin I < 0.012 0.026 Impressions: Knee X-Ray 03/22/18 13:51 IMPRESSION: SATISFACTORY POSTOPERATIVE RIGHT KNEE. Chest X-Ray 03/24/18 23:32 IMPRESSION: Cardial mediastinal silhouette appears prominent which may be on the basis of patient positioning Patchy perihilar densities and prominence of the central pulmonary vasculature. Recommend PA and lateral views of the chest. Renal Ultrasound 03/25/18 00:00 IMPRESSION: NORMAL RENAL AND BLADDER ULTRASOUND. Assessment & Plan - Diagnosis (1) S/P total knee replacement Qualifiers: Laterality: right Qualified Code(s): Z96.651 - Presence of right artificial knee joint Is this a current diagnosis for this admission?: Yes Plan: Postop day #2 status post right total knee arthroplasty Unfortunately patient continued to require oxygen and the hospice was consulted. Subsequently patient continued to demonstrate respiratory demise and was transferred to the ICU and placed on a ventilator. Given patient's renal status a CT scan was unable to be ordered to evaluate for possible pulmonary embolism and VQ scan cannot be done until 03/26/18. Had discussed the case with family and hospitalist ultimately given patient's multiple medical issues and his young age decision was made to transfer to a tertiary care facility.
--- NOTE | 2018-03-25 12:07 | PDOC TRANSFER SUMMARY ---
General Admission Date/PCP: 03/22/18 07:57 MELANIE FAYE PA-C Admission Date: 03/22/18 Transfer Date: 03/25/18 Accepting Facility: [facility] Accepting Physician: Dr. Hooker Resuscitation Status: Full Code - Transfer Diagnosis (1) Altered mental state Is this a current diagnosis for this admission?: Yes Diagnosis Summary: Unclear etiology. Differential includes hypercapnia vs. PE vs. fat embolism. Patient has known REJI and morbid obesity. Pt was suppose to be on DVT ppx post operatively however did not received. Given post-op immobility and obesity, concern for PE. Also possibility for fat embolism. Patient received opioids post op. Was given Narcan * 3 doses on 03/24 with few minutes of improvement however quickly became stuporous again. When lucid, had normal neuro exam. Less concern for intracranial process such as acute CVA. Overnight, intubated and sedated. On propofol. ABG this AM shows improvement in pH however oxygenation remains poor. - Continue on Vent, changed to pressure support - Started empirically on heparin GTT. Unable to get CTA due to renal failure and no staff for V/Q scan. D dimer pending. \\ - Would obtain CT head - Consider V/Q scan - Neurology consult - Review urine studies, urine fat pending; if consider high for fat embolism consider starting IV steroids empirically - Transfer to [facility] ICU (2) Acute hypercapnic respiratory failure Is this a current diagnosis for this admission?: Yes Diagnosis Summary: Per above. On vent. (3) Hypotension Is this a current diagnosis for this admission?: Yes Diagnosis Summary: Borderline low BP. Maintaining with IVF - Low threshold to start pressors. Would consider Aman - Full code (4) Leukocytosis Is this a current diagnosis for this admission?: Yes Diagnosis Summary: NO clear infectious etiology. LIkely stress response to acute illness. - Patient febrile on 03/25 - Urine cx and blood cx ordered, pending (5) S/P total knee replacement Is this a current diagnosis for this admission?: Yes Diagnosis Summary: Postop day #2 status post right total knee arthroplasty. Previously on orthopedic service (6) Acute renal failure Is this a current diagnosis for this admission?: Yes Diagnosis Summary: Baseline Cr 1, currently 4.38 on 03/25. Decreased urine output. CK elevated (27, 000, increased from previous 12,000 on 03/24) - Renal ultrasound today: normal - Urine lytes pending - No urgent indication for dialysis. - Consider nephro consult - Transfer Medications Home Medications: Carboxymethylcellulose Sodium [Lubricant Eye Drops] 1 each OD BID 03/19/18 Carvedilol 12.5 mg PO BID 03/19/18 Diltiazem HCl [Diltiazem 24Hr Cd] 240 mg PO DAILY 03/19/18 Gabapentin 800 mg PO TID 03/19/18 Lisinopril 40 mg PO DAILY 03/19/18 Methocarbamol 500 mg PO TID PRN 03/19/18 Naproxen 500 mg PO BID PRN 03/19/18 [place]-3 Fatty Acids/Fish Oil [Fish Oil 1,000 mg Capsule] 1 cap PO BID 03/19/18 Prazosin HCl 1 mg PO HSP PRN 03/19/18 Sildenafil Citrate 50 mg PO ASDIR PRN MDD 1 TAB IN 24 HOURS 03/19/18 Multivit-Min/Folic/Vit K/Lycop [One-A-Day Men's 50 Plus Tablet] 1 each PO DAILY 03/22/18 Transfer Medications: Current Medications Acetaminophen (Tylenol 650 Mg Supp) 650 mg VA Q6HP PRN PRN Reason: PAIN AND/OR TEMP ABOVE 102 Stop: 04/24/18 08:00 Acetaminophen (Tylenol Soln 325 Mg/10.15 Ml Udcup) 650 mg NG Q4 NARCISA Stop: 04/24/18 09:59 Last Admin: 03/25/18 09:52 Dose: Not Given Al Hydrox/Mg Hydrox/Simethicone (Maalox Plus Susp 30 Udcup) 30 ml NG Q6HP PRN PRN Reason: HEARTBURN Stop: 04/21/18 13:49 Artificial Tears (Refresh Plus 0.5% Oph Soln 0.4 Ml [place]) 1 drop OU BID NARCISA Stop: 04/21/18 17:59 Last Admin: 03/25/18 11:17 Dose: Not Given Carvedilol (Coreg 12.5 Mg Tablet) 12.5 mg NG Q12 NARCISA Stop: 04/21/18 21:59 Last Admin: 03/25/18 11:17 Dose: Not Given Diltiazem HCl (Cardizem Cd 240 Mg Capsule.Cr) 240 mg PO DAILY NARCISA Stop: 04/22/18 09:59 Last Admin: 03/24/18 12:47 Dose: Not Given Doxazosin Mesylate (Cardura 1 Mg Tablet) 1 mg NG QHS NARCISA Stop: 04/21/18 21:59 Gabapentin (Neurontin 400 Mg Capsule) 800 mg NG Q8 NARCISA Stop: 04/21/18 21:59 Heparin Sodium (Porcine) (Heparin Inj 1,000 Unit/Ml 10 Ml Vial) 0 - 15,000 unit IV .BOLUS PER PROTOCOL PRN; Protocol PRN Reason: RESPOND TO aPTT VALUE Stop: 04/24/18 12:40 Lactated Ringer's (Lactated Ringers 1000 Ml Iv Soln) 1,000 mls @ 150 mls/hr IV CONTINUOUS PRN PRN Reason: THIS MED IS NOT "PRN" Stop: 04/21/18 13:49 Last Admin: 03/25/18 05:27 Dose: 1,000 ml Propofol (Diprivan Rtu 1000 Mg/100 Ml Inf.Bottle) 1,000 mg in 100 mls @ 0 mls/ hr IV CONTINUOUS PRN; Protocol; Titrate PRN Reason: THIS MED IS NOT "PRN" Stop: 04/23/18 22:56 Last Admin: 03/25/18 03:33 Dose: 100 ml Heparin Sodium/Dextrose (Heparin Rtu 25,000 Unit/250 Ml D5w Premix) 25,000 unit in 250 mls @ 0 mls/hr IV CONTINUOUS PRN; Protocol; Titrate PRN Reason: THIS MED IS NOT "PRN" Stop: 04/24/18 09:37 Last Admin: 03/25/18 09:57 Dose: 250 ml Hard Fat/Phenylephrine 40 mg/ (Dextrose) 250 mls @ 0 mls/hr IV CONTINUOUS PRN; Protocol; Titrate PRN Reason: THIS MED IS NOT "PRN" Stop: 04/24/18 11:14 Methocarbamol (Robaxin 500 Mg Tablet) 500 mg NG TIDP PRN PRN Reason: FOR PAIN Stop: 04/21/18 13:51 Naproxen (Naprosyn 250 Mg Tablet) 500 mg NG BIDP PRN PRN Reason: FOR PAIN Stop: 04/21/18 20:16 Ohorc-7-Iprx Ethyl Esters (Lovaza 1 Gm Capsule) 1 gm PO Q12 NARCISA Stop: 04/24/18 09:59 Ondansetron HCl (Zofran Odt 4 Mg Tablet) 4 mg NG Q6HP PRN PRN Reason: FOR NAUSEA/VOMITING Stop: 04/22/18 19:58 Oxycodone HCl (Oxy-Ir 5 Mg Tablet) 5 mg NG Q4HP PRN PRN Reason: FOR PAIN SCALE 1-2 Stop: 03/29/18 13:53 Vit/Iron/Folic Acid/DHA ( Multi + Dha Capsule) 1 cap PO DAILY NARCISA Stop: 04/22/18 09:59 Last Admin: 03/24/18 14:24 Dose: Not Given Senna/Docusate Sodium (Senna Plus Tablet) 1 each NG BID NARCISA Stop: 04/21/18 17:59 Last Admin: 03/25/18 09:59 Dose: Not Given Sodium Biphosphate/Sodium Phosphate (Fleet Enema (Adult) 133 Ml) 133 ml VA DAILY NARCISA Stop: 04/24/18 09:59 Last Admin: 03/25/18 09:59 Dose: Not Given Sodium Chloride (Saline Flush 2.5 Ml Monoject Prefil Syrin) 2.5 ml IV Q8 NARCISA Stop: 04/21/18 13:59 Last Admin: 03/25/18 05:25 Dose: 2.5 ml - Allergies Allergies/Adverse Reactions: No Known Allergies Allergy (Verified 03/22/18 20:25) - Diet/Activity Discharge Diet: As Tolerated Hospital Course Hospital Course: Per above. Physical Exam Vital Signs: Temp Pulse Resp BP Pulse Ox 100.9 F H 91 16 117/58 L 98 03/25/18 10:00 03/25/18 10:00 03/25/18 10:00 03/25/18 10:00 03/25/18 10:00 Intake & Output 03/24/18 03/25/18 03/26/18 06:59 06:59 06:59 Intake Total 600 2334 Output Total 690 1145 55 Balance -90 1189 -55 Weight 137.9 kg 139.4 kg General appearance: PRESENT: other - Intubated and sedated Mouth exam: PRESENT: dry mucosa, other - ETT in place Respiratory exam: PRESENT: other - Course, mechanical breath sounds, on vent Cardiovascular exam: PRESENT: +S1, +S2. ABSENT: tachycardia GI/Abdominal exam: PRESENT: soft. ABSENT: tenderness Gentrourinary exam: PRESENT: other - Harrison in place, decrease urine output Neurological exam: PRESENT: altered Skin exam: PRESENT: dry, intact Results Laboratory Results: 03/25/18 09:50 03/25/18 04:09 03/24/18 03/24/18 03/24/18 13:22 18:20 20:50 WBC RBC Hgb Hct MCV MCH MCHC RDW Plt Count Seg Neutrophils % Lymphocytes % Monocytes % Eosinophils % Basophils % Absolute Neutrophils Absolute Lymphocytes Absolute Monocytes Absolute Eosinophils Absolute Basophils Carbonic Acid 2.48 H 1.95 H HCO3/H2CO3 Ratio 12:1 14:1 ABG pH 7.18 L* 7.25 L ABG pCO2 82.5 H* 64.8 H ABG pO2 77.0 L 71.8 L ABG HCO3 30.2 H 27.7 H ABG O2 Saturation 91.2 L 91.4 L ABG Base Excess 0.4 -0.5 VBG pH VBG pCO2 VBG HCO3 VBG Base Excess FiO2 24M NC 30% Sodium 135.0 L Potassium 5.6 H Chloride 94 L Carbon Dioxide 29 Anion Gap 12 BUN 54 H Creatinine 3.98 H Est GFR ( Amer) 19 L Est GFR (Non-Af Amer) 15 L Glucose 121 H Lactic Acid Calcium 7.9 L Ammonia Albumin Urine Color Urine Appearance Urine pH Ur Specific [place] Urine Protein Urine Glucose (UA) Urine Ketones Urine Blood Urine Nitrite Ur Leukocyte Esterase Urine WBC (Auto) Urine RBC (Auto) 03/24/18 03/24/18 03/24/18 21:30 22:00 22:30 WBC 14.9 H RBC 2.86 L Hgb 9.3 L Hct 27.9 L MCV 98 H MCH 32.5 MCHC 33.3 RDW 13.3 Plt Count 201 Seg Neutrophils % Lymphocytes % Monocytes % Eosinophils % Basophils % Absolute Neutrophils Absolute Lymphocytes Absolute Monocytes Absolute Eosinophils Absolute Basophils Carbonic Acid 2.47 H HCO3/H2CO3 Ratio 11:1 ABG pH 7.17 L* ABG pCO2 82.2 H* ABG pO2 85.8 ABG HCO3 29.0 H ABG O2 Saturation 93.2 L ABG Base Excess -1.0 VBG pH VBG pCO2 VBG HCO3 VBG Base Excess FiO2 35% Sodium Potassium Chloride Carbon Dioxide Anion Gap BUN Creatinine Est GFR ( Amer) Est GFR (Non-Af Amer) Glucose Lactic Acid Calcium Ammonia Albumin Urine Color YELLOW Urine Appearance CLOUDY Urine pH 5.0 Ur Specific [place] 1.014 Urine Protein 100 H Urine Glucose (UA) NEGATIVE Urine Ketones NEGATIVE Urine Blood LARGE H Urine Nitrite NEGATIVE Ur Leukocyte Esterase NEGATIVE Urine WBC (Auto) 22 Urine RBC (Auto) 8 03/25/18 03/25/18 03/25/18 01:26 04:09 04:09 WBC 13.7 H RBC 2.90 L Hgb 9.3 L Hct 27.9 L MCV 96 MCH 32.0 MCHC 33.3 RDW 13.4 Plt Count 165 Seg Neutrophils % Lymphocytes % Monocytes % Eosinophils % Basophils % Absolute Neutrophils Absolute Lymphocytes Absolute Monocytes Absolute Eosinophils Absolute Basophils Carbonic Acid 1.66 H HCO3/H2CO3 Ratio 16:1 ABG pH 7.31 L ABG pCO2 55.2 H ABG pO2 94.0 ABG HCO3 27.1 H ABG O2 Saturation 96.4 ABG Base Excess 0.4 VBG pH VBG pCO2 VBG HCO3 VBG Base Excess FiO2 50% Sodium 134.9 L Potassium 5.2 H Chloride 95 L Carbon Dioxide 28 Anion Gap 12 BUN 62 H Creatinine 4.38 H Est GFR ( Amer) 17 L Est GFR (Non-Af Amer) 14 L Glucose 142 H Lactic Acid Calcium 7.8 L Ammonia Albumin Urine Color Urine Appearance Urine pH Ur Specific [place] Urine Protein Urine Glucose (UA) Urine Ketones Urine Blood Urine Nitrite Ur Leukocyte Esterase Urine WBC (Auto) Urine RBC (Auto) 03/25/18 03/25/18 03/25/18 04:09 05:10 09:50 WBC 14.2 H RBC 2.69 L Hgb 8.7 L Hct 25.8 L MCV 96 MCH 32.2 MCHC 33.6 RDW 13.4 Plt Count 167 Seg Neutrophils % 83.0 H Lymphocytes % 7.0 L Monocytes % 9.8 Eosinophils % 0.1 Basophils % 0.1 Absolute Neutrophils 11.8 H Absolute Lymphocytes 1.0 Absolute Monocytes 1.4 Absolute Eosinophils 0.0 Absolute Basophils 0.0 Carbonic Acid 1.81 H HCO3/H2CO3 Ratio 17:1 ABG pH 7.33 L ABG pCO2 60.1 H ABG pO2 72.5 L ABG HCO3 31.1 H ABG O2 Saturation 93.2 L ABG Base Excess 4.1 VBG pH VBG pCO2 VBG HCO3 VBG Base Excess FiO2 50% Sodium Potassium Chloride Carbon Dioxide Anion Gap BUN Creatinine Est GFR ( Amer) Est GFR (Non-Af Amer) Glucose Lactic Acid Calcium Ammonia Albumin 3.1 L Urine Color Urine Appearance Urine pH Ur Specific [place] Urine Protein Urine Glucose (UA) Urine Ketones Urine Blood Urine Nitrite Ur Leukocyte Esterase Urine WBC (Auto) Urine RBC (Auto) 03/25/18 03/25/18 03/25/18 09:50 09:50 09:50 WBC RBC Hgb Hct MCV MCH MCHC RDW Plt Count Seg Neutrophils % Lymphocytes % Monocytes % Eosinophils % Basophils % Absolute Neutrophils Absolute Lymphocytes Absolute Monocytes Absolute Eosinophils Absolute Basophils Carbonic Acid HCO3/H2CO3 Ratio ABG pH ABG pCO2 ABG pO2 ABG HCO3 ABG O2 Saturation ABG Base Excess VBG pH 7.31 VBG pCO2 57.7 VBG HCO3 28.7 VBG Base Excess 1.3 FiO2 Sodium Potassium Chloride Carbon Dioxide Anion Gap BUN Creatinine Est GFR ( Amer) Est GFR (Non-Af Amer) Glucose Lactic Acid 1.0 Calcium Ammonia 21.2 Albumin Urine Color Urine Appearance Urine pH Ur Specific [place] Urine Protein Urine Glucose (UA) Urine Ketones Urine Blood Urine Nitrite Ur Leukocyte Esterase Urine WBC (Auto) Urine RBC (Auto) 03/24/18 03/24/18 03/25/18 20:50 20:50 04:09 Creatine Kinase 20735 H 64263 H CK-MB (CK-2) 63.00 H Troponin I < 0.012 03/25/18 03/25/18 03/25/18 04:09 09:05 09:05 Creatine Kinase 26817 H CK-MB (CK-2) 87.30 H 77.40 H Troponin I < 0.012 0.026 Impressions: Knee X-Ray 03/22/18 13:51 IMPRESSION: SATISFACTORY POSTOPERATIVE RIGHT KNEE. Chest X-Ray 03/24/18 23:32 IMPRESSION: Cardial mediastinal silhouette appears prominent which may be on the basis of patient positioning Patchy perihilar densities and prominence of the central pulmonary vasculature. Recommend PA and lateral views of the chest. Renal Ultrasound 03/25/18 00:00 IMPRESSION: NORMAL RENAL AND BLADDER ULTRASOUND.
[2018-03-25 12:35] LABS: ARTERIAL BLOOD BASE EXCESS -0.9 mmol/L; ARTERIAL BLOOD H2CO3 1.26 mmol/L (1.05-1.35); ARTERIAL BLOOD HCO3 24.2 mmol/L (20-26); ARTERIAL BLOOD O2 SATURATION 95.7 % (94-98); ARTERIAL BLOOD PH 7.38 (7.35-7.45); ARTERIAL BLOOD TOTAL CO2 25.5 mmol/L (23-27)
[2018-03-25 12:36] LABS: ARTERIAL BLOOD FIO2 40%
[2018-03-25] MEDS ORDERED: HEPARIN SOD (PORCINE) 1,000 UNIT/ML 10 ML VIAL IV PRN (12:41)
--- NOTE | 2018-03-25 13:16 | XCELERA REPORT ---
[address] [address] Transthoracic Echocardiogram Report Name: JAMEEL PICKENS Age: 62 yrs Gender: Male : 1955 Patient Status: Inpatient Patient Location: ICU^606^A Study Date: 03/25/2018 12:03 PM Height: 69 in Weight: 307 lb BSA: 2.5 m2 Procedure: A two-dimensional transthoracic echocardiogram with color flow and Doppler was performed. The study was technically difficult with many images being suboptimal in quality. Reason For Study: PULMONARY EDEMA / PULMONARY HYPERTENSION History: PULMONARY EDEMA / PULMONARY HYPERTENSION. Ordering Physician: SHEKHAR OTERO Performed By: Eduin Palma Interpretation Summary The left ventricle is normal in size. There is normal left ventricular wall thickness. LV EF is > than 65% Left ventricular systolic function is normal. Doppler measurements suggest normal left ventricular diastolic function The left ventricular wall motion is normal. There is no thrombus. There is no ventricular septal defect visualized. The right ventricle is not well visualized secondary to technical limitations Suspect mild RV enlargement with probably mildly reduced systolic function. The left atrial size is normal. There is mild mitral valve prolapse. There is no vegetation seen on the mitral valve. There is no mitral valve stenosis. There is a trace amount of mitral regurgitation There is no aortic valvular vegetation. There is mild aortic stenosis There is a peak gradient of 23 mm of Hg. There is no LVOT obstruction. No hemodynamically significant valvular aortic stenosis. No aortic regurgitation is present. There is no tricuspid stenosis. There is a mild amount of tricuspid regurgitation There is servere pulmonary hypertension by echo RVSP is 72 to 77 mm of Hg , with RA mean of 10 to 15. The aortic root is normal size. The inferior vena cava appeared normal and decreased < 50% with respiration (RAP 10-15 mmHg) There is no pericardial effusion. MMode/2D Measurements & Calculations RVDd: 4.1 cm LVIDd: 5.1 cmFS: 38.6 % Ao root diam: 2.8 cm IVSd: 1.1 cm LVIDs: 3.2 cmEDV(Teich): 126.6 ml LVPWd: 1.0 cmESV(Teich): 39.8 ml Ao root area: 6.0 cm2 EF(Teich): 68.6 % LA dimension: 3.5 cm LVOT diam: 2.0 cm LVOT area: 3.1 cm2 Doppler Measurements & Calculations MV E max man: MV P1/2t max man: Ao V2 max: LV V1 max P.8 cm/sec 123.7 cm/sec 237.7 cm/sec 9.3 mmHg MV A max man: MV P1/2t: 57.6 msec Ao max PG: LV V1 max: 87.9 cm/sec MVA(P1/2t): 3.8 cm2 22.6 mmHg 152.4 cm/sec MV E/A: 1.0 MV dec slope: ISRAEL(V,D): 2.0 cm2 LV dP/dt: 629.3 cm/sec2 3029 mmHg/s MV dec time: 0.21 sec TV V2 max: PA V2 max: 392.5 cm/sec 104.9 cm/sec TV max PG: PA max P.4 mmHg 61.6 mmHg Left Ventricle The left ventricle is normal in size. There is normal left ventricular wall thickness. LV EF is > than 65%. Left ventricular systolic function is normal. Doppler measurements suggest normal left ventricular diastolic function. The left ventricular wall motion is normal. There is no thrombus. There is no ventricular septal defect visualized. Right Ventricle The right ventricle is not well visualized secondary to technical limitations. Suspect mild RV enlargement with probably mildly reduced systolic function. Atria The right atrium is normal. The left atrial size is normal. The interatrial septum is intact with no evidence for an atrial septal defect. Mitral Valve There is mild mitral annular calcification. There is mild mitral valve prolapse. There is no vegetation seen on the mitral valve. There is no mitral valve stenosis. There is a trace amount of mitral regurgitation. Aortic Valve There is no aortic valvular vegetation. There is mild aortic stenosis. There is a peak gradient of 23 mm of Hg. There is no LVOT obstruction. No hemodynamically significant valvular aortic stenosis. No aortic regurgitation is present. Tricuspid Valve There is no tricuspid stenosis. There is a mild amount of tricuspid regurgitation. There is servere pulmonary hypertension by echo. RVSP is 72 to 77 mm of Hg , with RA mean of 10 to 15. Pulmonic Valve There is no pulmonic valvular stenosis. There is no pulmonic valvular regurgitation. Great Vessels The aortic root is normal size. The inferior vena cava appeared normal and decreased < 50% with respiration (RAP 10-15 mmHg). Effusions There is no pericardial effusion. : SHEKHAR OTERO > Ambreen Leigh
[2018-03-25] MEDS ORDERED: GABAPENTIN 400 MG CAPSULE NG SCH (14:00)
[2018-03-25 14:19] LABS: BLOOD UREA NITROGEN 68 mg/dL (7-20); CALCIUM 7.8 mg/dL (8.4-10.2); GLUCOSE 121 mg/dL (75-110)
[2018-03-25 14:20] LABS: ANION GAP 12 (5-19); CARBON DIOXIDE 29 mmol/L (22-30); CHLORIDE 94 mmol/L (98-107); POTASSIUM 5.5 mmol/L (3.6-5.0); SODIUM 134.5 mmol/L (137-145)
[2018-03-25 14:37] LABS: CREATINE KINASE 30255 U/L (55-170)
[2018-03-25 15:50] VITALS: BP 123/58
[2018-03-25] MEDS ORDERED: DOXAZOSIN MESYLATE 1 MG TABLET NG SCH (22:00)
--- NOTE | 2018-04-25 08:54 | Physician Advisory Note ---
Physician Advisor ProgressNote .: [facility] medical record for this patient. Physician Advisor Statement: Please consider documenting, if you agree: 1. Most likely cause of the AMS (listing a differential dx list is not sufficient for most accurate coding - we need to say our best educated guess as to the most likely cause....) Was the AMS: A. "most likely an adverse effect of oxycontin, building up in his system & producing excessive somnolence w/associated respiratory failure, & additional somnolence due to the resulting hypercapnia"? - or do you think the findings were more severe than would be explained by this, & B. "suspect acute PE from likely DVT related to surgery, causing acute respiratory failure and, in combination with adverse effect of oxycontin, causing acute toxic-metabolic encephalopathy"? Or do you think the findings are better explained by C. "suspected pneumonia, suspect gram-____ type, already developing on 03/22, producing acute resp failure & associated metabolic encephalopathy", or ....? 2. "Severe pulmonary hypertension" (ECHO) 3. ? "Anemia of acute blood loss due to TKA, expected consequence" - (Hgb was 13.3 on pre-op testing 03/05, was down to 8.7 by time of transfer) Asked to review chart by skirt maker to assist in query/dx clarification w/attg. Pertinent points include: 62yo w/HTN, PTSD, REJI/CPAP, morbid obesity, OA bilat knees came in for scheduled TKA on 03/22, done mid-day. No need for O2 at baseline. That day, RR was just 10 at 14:14. At 15:40, O2 sat 93% on 2L O2, then 88% on RA, & O2 2L was continued. Required 1 prn dose IV morphine 2mg that PM. On 03/23, his O2 sats were as low as 91% RA & 96% on 2L O2. BUN 21, Cr 1.14, K 5.1. Pain adeq'ly controlled without any prn opioids, pt alert. On 03/24 AM, he was somnolent/lethargic, responding only briefly to Narcan. O2 sat 92% on 2L at 8AM, w/BP down to 113/52 & later 96/38. Mild tachypnea noted at times. No signif tachycardia, but on beta darinel ('til 03/24 AM). Remained lethargic all day, said he felt like he'd been drugged. O2 sats remained low & dropping, requiring O2 & later Bipap, eventually intubation/ventilation. WBC 18.4, Hgb 10.2. BP down, UOP down, IVF bolus given. In PM, U/A had large blood, 100 protein, no fat. Na 135, K 5.6, BUN 54, Cr 3.98 , CK 12,240. ICU nurse documented cough productive of thick creamy yellow-green sputum on ETT suctioning by 00:00, which continued to be documented after that. On 03/25, he had core temps of 100s & then 101s. Hgb was down to 8.7, WBC remained in 14 range, & LOU continued to worsen. BCs & ur cx done & subsequently came back neg. Renal U/S nl, CKs remained 27-30K range. Unable to do CT-A or V/Q. ECHO showed severe pulm HTN. Neuro exam grossly WNL when awake post-Narcan. Transferred. CK
== END 2018-03-25 15:30 | disposition short-term general hospital (02) | DRG 469 ==
LOC: INOR 07:57 → 4S 15:15 → ICU 03-24 23:18
PROVIDERS: ADMIT Orthopaedic Surgery; ATTEND Orthopaedic Surgery
PROC: 0SRC0J9 Replacement of Right Knee Joint with Synthetic Substitute, Cemented, Open Approach (ICD-10-PCS; principal; 2018-03-24)
PROC: 0BH17EZ Insertion of Endotracheal Airway into Trachea, Via Natural or Artificial Opening (ICD-10-PCS; 2018-03-24)
PROC: 5A1935Z Respiratory Ventilation, Less than 24 Consecutive Hours (ICD-10-PCS; 2018-03-25)
DX: M17.0 Bilateral primary osteoarthritis of knee (principal); J96.22 Acute and chronic respiratory failure with hypercapnia; G92 Toxic encephalopathy; I26.99 Other pulmonary embolism without acute cor pulmonale; Z68.42 Body mass index [BMI] 45.0-49.9, adult; N17.9 Acute kidney failure, unspecified; R40.0 Somnolence; I10 Essential (primary) hypertension; T40.2X5A Adverse effect of other opioids, initial encounter; Y92.239 Unspecified place in hospital as the place of occurrence of the external cause; I95.89 Other hypotension; D72.825 Bandemia; F43.10 Post-traumatic stress disorder, unspecified; G47.33 Obstructive sleep apnea (adult) (pediatric); E66.01 Morbid (severe) obesity due to excess calories; Z82.49 Family history of ischemic heart disease and other diseases of the circulatory system; Z79.899 Other long term (current) drug therapy; Z78.1 Physical restraint status
CPT/HCPCS: 01402; 31500; 36415; 36600; 71045; 71046; 76775; 80048; 81001; 82040; 82140; 82550; 82553; 82803; 83605; 84484; 85025; 85027; 85379; 85610; 85730; 87040; 87086; 88304; 88311; 89125; 93005; 93010; 93306; 94002; 94003; 94660; 94799; C1713; C1776; C9290; J0131; J0330; J0610; J0690; J1100; J1644; J1741; J2250; J2270; J2310; J2370; J2704; J3010; J3370; J3490; J7050; J7060; J7120; S0119